=== PATIENT | female | born 1940 | race Caucasian/White ===

== ENCOUNTER 2017-09-12 22:12 | Inpatient (IN) | payer MEDICARE, MEDICAID ==
[~2017-09-12] VITALS: Ht 165.1 cm; Wt 99.5 kg
[2017-09-12 22:51] LABS: BASOPHILS # (AUTO) 0.1 X10'3 (0-0.2); BASOPHILS % (AUTO) 0.5 % (0-1); EOSINOPHILS # (AUTO) 0.5 X10'3 (0-0.9); EOSINOPHILS % (AUTO) 4.6 % (0-6); HEMATOCRIT 37.3 % (35.0-45.0); HEMOGLOBIN 12.7 g/dl (12.0-16.0); LYMPHOCYTES % (AUTO) 17.4 % (21-51); MEAN CORPUSCULAR HGB CONC 34.1 % (33.0-36.5); MEAN CORPUSCULAR VOLUME 93.8 FL (78-98); MEAN PLATELET VOLUME 7.9 FL (7.4-10.4); MONOCYTES # (AUTO) 0.8 X10'3 (0-0.9); MONOCYTES % (AUTO) 7.1 % (2-12); NEUTROPHILS # (AUTO) 8.1 X10'3 (1.8-7.7); NEUTROPHILS % (AUTO) 70.4 % (42-75); PLATELET COUNT 278 X10'3 (140-440); RED BLOOD COUNT 3.97 X10'6 (4.20-5.60); RED CELL DISTRIBUTION WIDTH 14.4 % (11.5-14.5); WHITE BLOOD COUNT 11.6 X10'3 (4.5-11.0)
[2017-09-12 23:04] LABS: PARTIAL THROMBOPLASTIN TIME 27 SECONDS (22-32); PROTHROMBIN TIME 10.4 SECONDS (9.0-12.0)
[2017-09-12 23:07] LABS: ALANINE AMINOTRANSFERASE 27 U/L (12-78); ALBUMIN 3.3 G/DL (3.4-5.0); ALBUMIN/GLOBULIN RATIO 0.8 (1.1-1.5); ALKALINE PHOSPHATASE 84 IU/L (46-116); ANION GAP 7 (8-16); ASPARTATE AMINO TRANSFERASE 23 U/L (10-37); BILIRUBIN,TOTAL 0.3 MG/DL (0.1-1.0); BLOOD UREA NITROGEN 16 MG/DL (7-18); CALCIUM 8.7 MG/DL (8.5-10.1); CHLORIDE 107 MMOL/L (99-107); GLUCOSE 107 MG/DL (70-104); SODIUM 143 MMOL/L (135-145); TOTAL CARBON DIOXIDE 29.5 MMOL/L (24-32); TOTAL PROTEIN 7.2 G/DL (6.4-8.2); eGFR 69 ML/MIN
[2017-09-13] MEDS ORDERED: HYDROcodone/acetaminophen 10/325mg tab PO PRN (00:30)
[2017-09-13] MEDS ORDERED: HYDROcodone/acetaminophen 5mg/325mg tablet PO PRN (00:30)
[2017-09-13] MEDS ORDERED: acetaminophen 325mg tablet PO PRN (00:30)
[2017-09-13] MEDS ORDERED: ondansetron/PF 4mg/2ml inj IV PRN (00:30)
[2017-09-13] MEDS ORDERED: magnesium hydroxide 30ml (MOM) UD suspension PO PRN (00:30)
[2017-09-13] MEDS ORDERED: HYDROmorphone 1 mg/ml syringe IV PRN ×2 (00:30)
[2017-09-13] MEDS ORDERED: acetaminophen 650mg rectal suppository RC PRN (00:30)
[2017-09-13] MEDS ORDERED: morphine 2 MG/ML inj. syringe IV PRN ×2 (00:30)
[2017-09-13] MEDS ORDERED: metoclopramide 5 mg/ml inj IV PRN (00:30)
[2017-09-13] MEDS ORDERED: mag hydrox/Alum hydrox/simeth 30ml oral suspension PO PRN (00:30)
[2017-09-13] MEDS ORDERED: bisacodyl 10mg suppository rectal RC PRN (00:30)
[2017-09-13] MEDS ORDERED: diphenhydrAMINE 25mg capsule PO PRN (00:30)
[2017-09-13] MEDS ORDERED: diphenhydrAMINE 50 mg/ml inj IV PRN (00:30)
[2017-09-13] MEDS: normal saline 1000ml 1,000 ML IV SCH (01:03)
[2017-09-13] MEDS: metoprolol tartrate 1mg/ml inj IV PRN ×4 (01:09→03:35)
[2017-09-13 01:20] LABS: HEMOGLOBIN A1C 5.6 % (4.5-6.2)
[2017-09-13 01:32] LABS: CREATINE KINASE 80 U/L (26-192); LIPASE 218 U/L (73-393); TROPONIN I < 0.04 NG/ML (0.0-0.05)
[2017-09-13] MEDS: acetaminophen 325mg tablet PO PRN ×3 (03:22→23:24)
[2017-09-13] MEDS: docusate sod 100mg capsule PO SCH ×2 (07:20→21:27)
[2017-09-13 08:50] VITALS: BP 156/76
[2017-09-13] MEDS: pantoprazole 40 MG vial IV SCH ×2 (09:05→21:26)
[2017-09-13] MEDS ORDERED: NO HOME MEDS (10:56)
[2017-09-13 12:53] VITALS: BP 157/67
[2017-09-13 16:21] LABS: HEMATOCRIT 34.1 % (35.0-45.0); HEMOGLOBIN 11.6 g/dl (12.0-16.0); MEAN CORPUSCULAR HGB CONC 34.1 % (33.0-36.5); MEAN CORPUSCULAR VOLUME 93.6 FL (78-98); MEAN PLATELET VOLUME 7.9 FL (7.4-10.4); PLATELET COUNT 246 X10'3 (140-440); RED BLOOD COUNT 3.64 X10'6 (4.20-5.60); RED CELL DISTRIBUTION WIDTH 14.5 % (11.5-14.5); WHITE BLOOD COUNT 7.7 X10'3 (4.5-11.0)
[2017-09-13 20:00] VITALS: BP 165/68
[2017-09-13] MEDS ORDERED: temazepam 15mg capsule PO PRN (21:00)
[2017-09-14] VITALS: BP 149/63
[2017-09-14 05:18] LABS: BASOPHILS # (AUTO) 0.1 X10'3 (0-0.2); EOSINOPHILS # (AUTO) 0.5 X10'3 (0-0.9); HEMATOCRIT 31.6 % (35.0-45.0); HEMOGLOBIN 10.8 g/dl (12.0-16.0); LYMPHOCYTES # (AUTO) 1.4 X10'3 (1.1-4.8); LYMPHOCYTES % (AUTO) 21.6 % (21-51); MEAN CORPUSCULAR HEMOGLOBIN 31.9 PG (27.0-31.0); MEAN CORPUSCULAR HGB CONC 34.1 % (33.0-36.5); MEAN CORPUSCULAR VOLUME 93.7 FL (78-98); MEAN PLATELET VOLUME 8.1 FL (7.4-10.4); MONOCYTES # (AUTO) 0.6 X10'3 (0-0.9); MONOCYTES % (AUTO) 9.3 % (2-12); NEUTROPHILS # (AUTO) 4.1 X10'3 (1.8-7.7); NEUTROPHILS % (AUTO) 61.1 % (42-75); PLATELET COUNT 205 X10'3 (140-440); RED BLOOD COUNT 3.38 X10'6 (4.20-5.60); RED CELL DISTRIBUTION WIDTH 14.4 % (11.5-14.5); WHITE BLOOD COUNT 6.6 X10'3 (4.5-11.0)
[2017-09-14 05:25] LABS: ALANINE AMINOTRANSFERASE 23 U/L (12-78); ALBUMIN 2.8 G/DL (3.4-5.0); ALBUMIN/GLOBULIN RATIO 0.8 (1.1-1.5); ALKALINE PHOSPHATASE 66 IU/L (46-116); ANION GAP 8 (8-16); ASPARTATE AMINO TRANSFERASE 21 U/L (10-37); BILIRUBIN,TOTAL 0.4 MG/DL (0.1-1.0); BLOOD UREA NITROGEN 12 MG/DL (7-18); CALCIUM 8.7 MG/DL (8.5-10.1); CHLORIDE 108 MMOL/L (99-107); CHOL/HDL RATIO 2.9 (0.00-4.99); CHOLESTEROL 124 MG/DL (0-200); GLUCOSE 107 MG/DL (70-104); HDL CHOLESTEROL 43 MG/DL (35-60); LDL CHOLESTEROL 70 MG/DL (50-100); POTASSIUM 3.8 MMOL/L (3.5-5.1); SODIUM 144 MMOL/L (135-145); TOTAL PROTEIN 6.2 G/DL (6.4-8.2); TRIGLYCERIDES 97 MG/DL (20-135); eGFR 69 ML/MIN
[2017-09-14] MEDS: docusate sod 100mg capsule PO SCH ×2 (06:29→20:00)
[2017-09-14] MEDS: acetaminophen 325mg tablet PO PRN ×3 (06:47→20:54)
[2017-09-14] MEDS: pantoprazole 40 MG vial IV SCH ×2 (06:47→20:53)
[2017-09-14 07:26] VITALS: BP 142/54
[2017-09-14] MEDS ORDERED: heparin sodium, porcine/PF 100unit/ml 5ML syringe ONE (07:58)
[2017-09-14 12:00] VITALS: BP 164/71
[2017-09-14] MEDS ORDERED: PEG 3350/Na sulf,bicarb,Cl/KCl oral sol 4 liter bottle PO ONE (14:15)
[2017-09-14 20:00] VITALS: BP 158/65
[2017-09-15] VITALS (10 sets, daily range): BP systolic 134–161; BP diastolic 54–79
[2017-09-15] MEDS: normal saline 1000ml 1,000 ML IV SCH (01:12)
[2017-09-15] MEDS: acetaminophen 325mg tablet PO PRN ×3 (02:28→20:11)
[2017-09-15 06:06] LABS: BASOPHILS % (AUTO) 0.2 % (0-1); EOSINOPHILS # (AUTO) 0.5 X10'3 (0-0.9); EOSINOPHILS % (AUTO) 6.2 % (0-6); HEMATOCRIT 30.1 % (35.0-45.0); HEMOGLOBIN 10.2 g/dl (12.0-16.0); LYMPHOCYTES # (AUTO) 1.4 X10'3 (1.1-4.8); LYMPHOCYTES % (AUTO) 19.5 % (21-51); MEAN CORPUSCULAR HEMOGLOBIN 31.7 PG (27.0-31.0); MEAN CORPUSCULAR VOLUME 93.3 FL (78-98); MONOCYTES # (AUTO) 0.6 X10'3 (0-0.9); MONOCYTES % (AUTO) 8.5 % (2-12); NEUTROPHILS # (AUTO) 4.7 X10'3 (1.8-7.7); NEUTROPHILS % (AUTO) 65.6 % (42-75); PLATELET COUNT 213 X10'3 (140-440); RED BLOOD COUNT 3.22 X10'6 (4.20-5.60); RED CELL DISTRIBUTION WIDTH 13.9 % (11.5-14.5); WHITE BLOOD COUNT 7.2 X10'3 (4.5-11.0)
[2017-09-15] MEDS: docusate sod 100mg capsule PO SCH ×2 (06:21→20:00)
[2017-09-15 06:33] LABS: ALANINE AMINOTRANSFERASE 23 U/L (12-78); ALBUMIN 2.8 G/DL (3.4-5.0); ALBUMIN/GLOBULIN RATIO 0.8 (1.1-1.5); ALKALINE PHOSPHATASE 65 IU/L (46-116); ANION GAP 8 (8-16); ASPARTATE AMINO TRANSFERASE 25 U/L (10-37); BILIRUBIN,TOTAL 0.3 MG/DL (0.1-1.0); BLOOD UREA NITROGEN 9 MG/DL (7-18); BUN/CREATININE RATIO 12.9 (6.6-38.0); CALCIUM 8.5 MG/DL (8.5-10.1); CHLORIDE 110 MMOL/L (99-107); GLUCOSE 100 MG/DL (70-104); POTASSIUM 3.9 MMOL/L (3.5-5.1); SODIUM 147 MMOL/L (135-145); TOTAL CARBON DIOXIDE 28.6 MMOL/L (24-32); TOTAL PROTEIN 6.1 G/DL (6.4-8.2); eGFR 81 ML/MIN
[2017-09-15] MEDS ORDERED: MIDAZolam 1mg/ml 10ml vial ONE (06:51)
[2017-09-15] MEDS ORDERED: LIDOcaine Viscous 15ml cup ONE (06:51)
[2017-09-15] MEDS ORDERED: fentaNYL/PF 50MCG/1 ML 2ML syringe ONE ×2 (06:51→09:02)
[2017-09-15] MEDS: pantoprazole 40 MG vial IV SCH (07:33)
[2017-09-15] MEDS ORDERED: amLODIPine 5mg tablet PO SCH (08:00)
[2017-09-15] MEDS ORDERED: normal saline 1000ml 1,000 ML IV SCH (08:14)
[2017-09-15] MEDS ORDERED: MIDAZolam 5mg/5ml vial IV PRN (08:15)
[2017-09-15] MEDS ORDERED: simethicone 40mg/0.6ml oral drops 30ml MC ONE (08:15)
[2017-09-15] MEDS ORDERED: LIDOcaine Viscous 15ml cup PO ONE (08:15)
[2017-09-15] MEDS ORDERED: fentaNYL/PF 50MCG/1 ML 2ML syringe IV PRN (08:15)
[2017-09-15] MEDS: metroNIDAZOLE-Flagyl 500mg/NS 100 ML IV SCH ×2 (15:41→15:54)
[2017-09-15] MEDS: levoFLOXACIN 500mg tablet PO SCH (15:41)
[2017-09-15] MEDS: pantoprazole 40mg Tablet.DR PO SCH (20:08)
[2017-09-16] VITALS: BP 150/63
[2017-09-16] MEDS: metroNIDAZOLE 500mg tablet PO SCH ×3 (04:12→16:58)
[2017-09-16] MEDS: acetaminophen 325mg tablet PO PRN ×2 (04:16→13:36)
[2017-09-16 06:24] LABS: BASOPHILS # (AUTO) 0.1 X10'3 (0-0.2); BASOPHILS % (AUTO) 0.6 % (0-1); EOSINOPHILS # (AUTO) 0.3 X10'3 (0-0.9); EOSINOPHILS % (AUTO) 3.4 % (0-6); HEMATOCRIT 30.5 % (35.0-45.0); HEMOGLOBIN 10.6 g/dl (12.0-16.0); LYMPHOCYTES # (AUTO) 1.3 X10'3 (1.1-4.8); LYMPHOCYTES % (AUTO) 13.7 % (21-51); MEAN CORPUSCULAR HEMOGLOBIN 32.1 PG (27.0-31.0); MEAN CORPUSCULAR HGB CONC 34.7 % (33.0-36.5); MEAN CORPUSCULAR VOLUME 92.5 FL (78-98); MONOCYTES # (AUTO) 0.7 X10'3 (0-0.9); MONOCYTES % (AUTO) 7.4 % (2-12); NEUTROPHILS # (AUTO) 7.4 X10'3 (1.8-7.7); NEUTROPHILS % (AUTO) 74.9 % (42-75); PLATELET COUNT 233 X10'3 (140-440); RED BLOOD COUNT 3.29 X10'6 (4.20-5.60); RED CELL DISTRIBUTION WIDTH 14.1 % (11.5-14.5); WHITE BLOOD COUNT 9.8 X10'3 (4.5-11.0)
[2017-09-16 06:39] LABS: ALANINE AMINOTRANSFERASE 26 U/L (12-78); ALBUMIN 3.1 G/DL (3.4-5.0); ALBUMIN/GLOBULIN RATIO 0.9 (1.1-1.5); ALKALINE PHOSPHATASE 71 IU/L (46-116); ANION GAP 7 (8-16); ASPARTATE AMINO TRANSFERASE 27 U/L (10-37); BILIRUBIN,TOTAL 0.5 MG/DL (0.1-1.0); BLOOD UREA NITROGEN 8 MG/DL (7-18); BUN/CREATININE RATIO 8.9 (6.6-38.0); CHLORIDE 107 MMOL/L (99-107); GLUCOSE 108 MG/DL (70-104); SODIUM 144 MMOL/L (135-145); TOTAL CARBON DIOXIDE 29.9 MMOL/L (24-32); TOTAL PROTEIN 6.7 G/DL (6.4-8.2); eGFR 60 ML/MIN
[2017-09-16 07:30] VITALS: BP 154/59
[2017-09-16] MEDS ORDERED: amLODIPine 5mg tablet PO SCH (08:00)
[2017-09-16] MEDS: docusate sod 100mg capsule PO SCH (08:00)
[2017-09-16] MEDS: pantoprazole 40mg Tablet.DR PO SCH (10:19)
[2017-09-16] MEDS: levoFLOXACIN 500mg tablet PO SCH (10:19)
[2017-09-16 10:38] LABS: OCCULT BLOOD STOOL POSITIVE (Neg)
[2017-09-16 11:00] VITALS: BP 133/63
[2017-09-16] MEDS ORDERED: AMLO5TAB16 PO (13:01)
[2017-09-16] MEDS ORDERED: LEVO500T89 PO (13:01)
[2017-09-16] MEDS ORDERED: METR500T4 PO (13:01)
[2017-09-16] MEDS ORDERED: PANT40TA4 PO (13:01)
[2017-09-16] MEDS ORDERED: lactobacillus rhamnosus 10,000 MMU CELLS/CAPSULE PO SCH (17:30)
== END 2017-09-16 18:30 | disposition home health service (06) | DRG 378 ==
LOC: ER 22:13 → ED HOLD 09-13 00:28 → MED 3N 09-13 08:45
PROVIDERS: ADMIT Family Medicine; ATTEND Internal Medicine
PROC: 0DJ08ZZ Inspection of Upper Intestinal Tract, Via Natural or Artificial Opening Endoscopic (ICD-10-PCS; principal; 2017-09-15)
PROC: 0DBM8ZZ Excision of Descending Colon, Via Natural or Artificial Opening Endoscopic (ICD-10-PCS; 2017-09-15)
PROC: 0DBL8ZZ Excision of Transverse Colon, Via Natural or Artificial Opening Endoscopic (ICD-10-PCS; 2017-09-15)
PROC: 0DBP8ZZ Excision of Rectum, Via Natural or Artificial Opening Endoscopic (ICD-10-PCS; 2017-09-15)
DX: K62.5 Hemorrhage of anus and rectum (principal); I16.1 Hypertensive emergency; E11.9 Type 2 diabetes mellitus without complications; D64.9 Anemia, unspecified; E66.01 Morbid (severe) obesity due to excess calories; F41.9 Anxiety disorder, unspecified; I10 Essential (primary) hypertension; K31.819 Angiodysplasia of stomach and duodenum without bleeding; K57.30 Diverticulosis of large intestine without perforation or abscess without bleeding; K62.1 Rectal polyp; K63.5 Polyp of colon; J44.9 Chronic obstructive pulmonary disease, unspecified; Z90.710 Acquired absence of both cervix and uterus; Z99.3 Dependence on wheelchair; Z90.49 Acquired absence of other specified parts of digestive tract; Z87.891 Personal history of nicotine dependence; Z68.36 Body mass index [BMI] 36.0-36.9, adult
CPT/HCPCS: 36415; 45385; 78278; 80053; 80061; 82272; 82550; 83036; 83690; 83735; 83880; 84100; 84443; 84484; 85025; 85027; 85610; 85730; 86885; 86900; 86901; 87070; 96374; 99285; A4620; A9560; C9113; G0500; J1200; J1642; J2250; J3010; J3490; J7030; J7060

== ENCOUNTER 2020-09-12 04:23 | Emergency (ER) | payer MEDICARE, MEDICAID ==
[~2020-09-12] VITALS: Ht 165.1 cm; Wt 95.0 kg
[~2020-09-12 04:23] MED LIST: AMLO5TAB16 PO; LEVO500T89 PO; METR-159 PO; NO HOME MEDS; PANT40TA54 PO
[2020-09-12 04:26] VITALS: BP 166/64
[2020-09-12] MEDS ORDERED: HYDROcodone/acetaminophen 5mg/325mg tablet PO ONE (04:50)
[2020-09-12] MEDS ORDERED: HYDR-3965 PO (05:13)
== END 2020-09-12 05:24 | disposition home or self-care (01) ==
LOC: ER 04:24
DX: S00.81XA Abrasion of other part of head, initial encounter (principal); M79.602 Pain in left arm; M25.512 Pain in left shoulder; I10 Essential (primary) hypertension; J44.9 Chronic obstructive pulmonary disease, unspecified; E11.9 Type 2 diabetes mellitus without complications; Z90.49 Acquired absence of other specified parts of digestive tract; Z90.710 Acquired absence of both cervix and uterus; Z90.89 Acquired absence of other organs; Z72.89 Other problems related to lifestyle; Z79.2 Long term (current) use of antibiotics; Z79.899 Other long term (current) drug therapy; W19.XXXA Unspecified fall, initial encounter; Y93.89 Activity, other specified; Y92.89 Other specified places as the place of occurrence of the external cause; Y99.8 Other external cause status
CPT/HCPCS: 99283

== ENCOUNTER 2021-10-23 18:00 | Inpatient (IN) | payer BC, MEDICAID ==
[~2021-10-23] VITALS: Ht 165.1 cm; Wt 83.7 kg
[~2021-10-23 18:00] MED LIST changes: -LEVO500T89 PO; +LEVO500T90 PO
[2021-10-23] MEDS ORDERED: HYDR-3972 PO (18:25)
[2021-10-23] MEDS ORDERED: POTA8CAP20 PO (18:25)
[2021-10-23] MEDS ORDERED: FURO40TA4 PO (18:25)
[2021-10-23] MEDS ORDERED: furosemide 40mg/4ml inj IV ONE (18:50)
[2021-10-23 19:25] LABS: ALANINE AMINOTRANSFERASE 15 U/L (12-78); ALBUMIN 2.1 G/DL (3.4-5.0); ALBUMIN/GLOBULIN RATIO 0.5 (1.1-1.5); ALKALINE PHOSPHATASE 171 IU/L (46-116); ANION GAP 9 (8-16); ASPARTATE AMINO TRANSFERASE 19 U/L (10-37); BILIRUBIN,TOTAL 0.7 MG/DL (0.1-1.0); BLOOD UREA NITROGEN 29 MG/DL (7-18); BUN/CREATININE RATIO 29.6 (6.6-38.0); CALCIUM 9.4 MG/DL (8.5-10.1); CHLORIDE 86 MMOL/L (99-107); CREATININE 0.98 MG/DL (0.40-0.90); GLUCOSE 89 MG/DL (70-104); POTASSIUM 4.8 MMOL/L (3.5-5.1); SODIUM 121 MMOL/L (135-145); TOTAL CARBON DIOXIDE 26.3 MMOL/L (24-32); TOTAL PROTEIN 6.5 G/DL (6.4-8.2); eGFR 54 ML/MIN
[2021-10-23 19:31] LABS: BASOPHILS # (AUTO) 0.1 X10'3 (0-0.2); BASOPHILS % (AUTO) 0.2 % (0-1); EOSINOPHILS # (AUTO) 1.6 X10'3 (0-0.9); EOSINOPHILS % (AUTO) 6.2 % (0-6); HEMATOCRIT 29.9 % (35.0-45.0); HEMOGLOBIN 9.5 g/dl (12.0-16.0); LYMPHOCYTES # (AUTO) 1.5 X10'3 (1.1-4.8); LYMPHOCYTES % (AUTO) 5.9 % (21-51); MEAN CORPUSCULAR HEMOGLOBIN 27.4 PG (27.0-31.0); MEAN CORPUSCULAR HGB CONC 31.7 g/dL (33.0-36.5); MEAN CORPUSCULAR VOLUME 86.3 FL (78-98); MEAN PLATELET VOLUME 7.4 FL (7.4-10.4); MONOCYTES # (AUTO) 3.2 X10'3 (0-0.9); MONOCYTES % (AUTO) 12.2 % (2-12); NEUTROPHILS # (AUTO) 19.9 X10'3 (1.8-7.7); NEUTROPHILS % (AUTO) 75.5 % (42-75); PLATELET COUNT 386 X10'3 (140-440); RED BLOOD COUNT 3.47 X10'6 (4.20-5.60); RED CELL DISTRIBUTION WIDTH 18.3 % (11.5-14.5)
[2021-10-23 19:36] LABS: WHITE BLOOD COUNT 26.4 X10'3 (4.5-11.0)
[2021-10-23] MEDS ORDERED: CefTRIAXone 2gm/D5W 50ml BAG 50 ML IV ONE (19:40)
[2021-10-23] MEDS ORDERED: ondansetron/PF 4mg/2ml inj IV PRN (20:00)
[2021-10-23] MEDS: K and/or MAG REPLACEMENT MC SCH (20:00)
[2021-10-23] MEDS ORDERED: magnesium hydroxide 30ml (MOM) UD suspension PO PRN (20:00)
[2021-10-23] MEDS ORDERED: magnesium 2GM in 50ml NS 50 ML IV PRN (20:00)
[2021-10-23] MEDS ORDERED: apixaban 5mg tablet PO SCH (20:00)
[2021-10-23] MEDS ORDERED: acetaminophen 325mg tablet PO PRN (20:00)
[2021-10-23] MEDS ORDERED: potassium Cl 20 mEq SR tablet PO PRN ×2 (20:00)
[2021-10-23] MEDS ORDERED: morphine 2 MG/ML inj. syringe IV PRN (20:00)
[2021-10-23] MEDS ORDERED: potassium CL 10mEq/100ml bag 100 ML IV PRN (20:00)
[2021-10-23] MEDS ORDERED: mag hydrox/Alum hydrox/simeth 30ml oral suspension PO PRN (20:00)
[2021-10-23] MEDS ORDERED: magnesium 4gm in 100ml NS 100 ML IV PRN (20:00)
[2021-10-23] MEDS ORDERED: magnesium Cl slow-release 64mg tablet PO PRN (20:00)
[2021-10-23] MEDS ORDERED: apixaban 5mg tablet PO STA (20:10)
[2021-10-23] MEDS ORDERED: metoprolol tartrate 1mg/ml inj IV ONE (20:10)
[2021-10-23] MEDS: metoprolol tartrate 50mg tablet PO SCH (20:10)
[2021-10-23 20:27] LABS: MAGNESIUM 2.3 MG/DL (1.5-2.4)
[2021-10-23] MEDS: HYDROcodone/acetaminophen 10/325mg tab PO PRN (20:31)
[2021-10-23] MEDS: docusate sod 100mg capsule PO SCH (20:31)
[2021-10-23 20:38] LABS: HEMOGLOBIN A1C 5.6 % (4.5-6.2)
[2021-10-23 21:02] LABS: PLATELET ESTIMATE NORMAL; TOTAL CELLS COUNTED 100; TOXIC GRANULATION 3+
[2021-10-23 21:03] LABS: ANISOCYTOSIS 2+; TOXIC VACUOLATION FEW
[2021-10-23 21:04] LABS: ELLIPTOCYTES FEW; LARGE PLATELETS FEW
[2021-10-23 21:05] LABS: POLYCHROMASIA FEW
[2021-10-23 22:15] LABS: CLARITY,URINE CLOUDY (Clear); COLOR,URINE YELLOW (Yellow); GLUCOSE, URINE NEGATIVE (Neg); KETONES,URINE NEGATIVE (Neg); LEUKOCYTE ESTERASE ,URINE LARGE (Neg); NITRITES, URINE NEGATIVE (Neg); OCCULT BLOOD,URINE SMALL (Neg); PH,URINE 6.5 (4.8-8.0); PROTEIN,URINE NEGATIVE (Neg); UROBILINOGEN,URINE 0.2 E.U/dL (0.2-1.0)
[2021-10-23 22:19] LABS: UA COLLECTION TYPE STRAIGHT CATH
[2021-10-23 22:22] LABS: BACTERIA,URINE 1+ /HPF (Neg); MUCUS STRANDS FEW /LPF (Neg); SQUAMOUS EPITHELIAL CELL,UR FEW /LPF (FEW); TRANSITIONAL EPI CELLS,URINE FEW /HPF; WBC,URINE TNTC /HPF (0-4)
[2021-10-23 22:23] LABS: WBC CLUMPS,URINE MODERATE /HPF (NEGATIVE)
--- NOTE | 2021-10-23 22:32 | NUR ---
SPOKE WITH HOSPITALIST REGARDING PATIENTS DESIRE TO RECIEVE A ROY, HOSPITALIST GAVE VERBAL ORDER.
[2021-10-23 23:55] VITALS: BP 136/101
[2021-10-24] MEDS: morphine 2 MG/ML inj. syringe IV PRN ×2 (01:00→05:17)
[2021-10-24 06:00] VITALS: BP 141/103
[2021-10-24 06:46] LABS: BASOPHILS % (AUTO) 0.2 % (0-1); EOSINOPHILS # (AUTO) 0.1 X10'3 (0-0.9); EOSINOPHILS % (AUTO) 0.6 % (0-6); HEMATOCRIT 26.4 % (35.0-45.0); HEMOGLOBIN 8.5 g/dl (12.0-16.0); LYMPHOCYTES # (AUTO) 0.8 X10'3 (1.1-4.8); LYMPHOCYTES % (AUTO) 3.9 % (21-51); MEAN CORPUSCULAR HEMOGLOBIN 27.4 PG (27.0-31.0); MEAN CORPUSCULAR HGB CONC 32.2 g/dL (33.0-36.5); MEAN PLATELET VOLUME 7.3 FL (7.4-10.4); MONOCYTES # (AUTO) 1.8 X10'3 (0-0.9); MONOCYTES % (AUTO) 9.1 % (2-12); NEUTROPHILS # (AUTO) 17.4 X10'3 (1.8-7.7); NEUTROPHILS % (AUTO) 86.2 % (42-75); PLATELET COUNT 383 X10'3 (140-440); RED BLOOD COUNT 3.11 X10'6 (4.20-5.60); RED CELL DISTRIBUTION WIDTH 17.9 % (11.5-14.5); WHITE BLOOD COUNT 20.2 X10'3 (4.5-11.0)
[2021-10-24 07:05] LABS: % IRON SATURATION 13 % (11-46); IRON 16 UG/DL (49-151); TOTAL IRON BINDING CAPACITY 120 UG/DL (259-388)
[2021-10-24 07:21] LABS: ALANINE AMINOTRANSFERASE 11 U/L (12-78); ALBUMIN 1.9 G/DL (3.4-5.0); ALBUMIN/GLOBULIN RATIO 0.5 (1.1-1.5); ALKALINE PHOSPHATASE 139 IU/L (46-116); ANION GAP 10 (8-16); ASPARTATE AMINO TRANSFERASE 18 U/L (10-37); BILIRUBIN,TOTAL 0.7 MG/DL (0.1-1.0); BLOOD UREA NITROGEN 28 MG/DL (7-18); BUN/CREATININE RATIO 30.1 (6.6-38.0); CALCIUM 9.2 MG/DL (8.5-10.1); CHLORIDE 89 MMOL/L (99-107); CHOL/HDL RATIO 2.4 (0.00-4.99); CHOLESTEROL 110 MG/DL (0-200); CREATININE 0.93 MG/DL (0.40-0.90); FERRITIN 322 NG/ML (8-252); GLUCOSE 70 MG/DL (70-104); HDL CHOLESTEROL 46 MG/DL (35-60); LDL CHOLESTEROL 44 MG/DL (50-100); MAGNESIUM 2.1 MG/DL (1.5-2.4); POTASSIUM 4.3 MMOL/L (3.5-5.1); SODIUM 126 MMOL/L (135-145); TOTAL CARBON DIOXIDE 27.1 MMOL/L (24-32); TOTAL PROTEIN 5.9 G/DL (6.4-8.2); TRIGLYCERIDES 57 MG/DL (20-135); eGFR 58 ML/MIN
[2021-10-24] MEDS ORDERED: furosemide 10 MG/1 ML 10ml inj IV SCH (08:00)
[2021-10-24] MEDS: K and/or MAG REPLACEMENT MC SCH ×2 (08:00→20:00)
[2021-10-24] MEDS: docusate sod 100mg capsule PO SCH ×2 (08:16→20:22)
[2021-10-24] MEDS: apixaban 5mg tablet PO SCH ×2 (08:16→20:22)
[2021-10-24] MEDS: metoprolol tartrate 50mg tablet PO SCH ×2 (08:16→20:23)
[2021-10-24] MEDS: CefTRIAXone/D5W-Rocephin 1gm 50 ML IV SCH (08:17)
[2021-10-24] MEDS: HYDROcodone/acetaminophen 10/325mg tab PO PRN (09:00)
[2021-10-24 09:52] LABS: APTT 43 SECONDS (22-32)
[2021-10-24] MEDS ORDERED: salt irrigation nasal spray 45 ML SPRAY NS PRN (10:45)
[2021-10-24 11:00] VITALS: BP 141/103
--- NOTE | 2021-10-24 11:38 | NUR ---
Malnutrition Consult: Noted pt stated wt loss of 34 lbs or more per RN malnutrition screen. Pt current wt of 78.18 kg not scaled and is 16.82 kg less than previous scaled wt of 95 kg, taken 08/2020, constituting a non-significant wt difference of ~18% x 1 year. No visible muscle or fat wasting observed at bedside. Noted w/ mild weakness, and BLE +2 edema, likely related to CHF; Pending PO trends. Pt w/ PI to coccyx and noted wounds to LE, pending WOC assessment. Pt does not meet minimum criteria for malnutrition at this time. Will continue to monitor. Addendum: 10/24/21 at [address] Amended: Links added. Addendum: 10/24/21 at [address] I have reviewed assessment by biology internship
[2021-10-24] MEDS ORDERED: nystatin 15 GM powder TP SCH (13:00)
--- NOTE | 2021-10-24 13:09 | NUR ---
PRESSURE ULCER EDUCATION: DEFINITION: A pressure ulcer is an area of skin that breaks down when you stay in one position too long. The constant pressure against the skin reduces the blood flow to that area and the affected tissue dies. CAUSES: "Being bedridden or in a wheelchair "Fragile skin "Having a chronic condition, such as diabetes or vascular disease "Inability to move certain parts of your body without assistance "Older age "Incontinence of urine or stool SYMPTOMS: "A reddened area that DOES NOT turn white when pressed on - this can be the beginning of a pressure ulcer "A blister, deep sore or a crater - these can be advanced pressure ulcers FIRST AID: "Relieve the pressure on this area "Keep the area clean and dry "Call your primary doctor if you see any of the above symptoms "DO NOT massage the area "DO NOT use a donut shaped or ring shaped pillow- these actually interfere with the blood flow and cause complications PREVENTION: "Check for pressure ulcers everyday "Change position at least every two hours to relieve pressure "Use items that help relieve pressure- pillows, sheepskin, foam padding, and powders. "Keep skin clean and dry "Eat healthy well balanced meals "Exercise daily IF YOU SEE ANY OF THESE SYMPTOMS WHILE IN THE HOSPITAL - TELL YOUR NURSE IMMEDIATELY. IF YOU SEE ANY OF THESE SYMPTOMS WHILE AT HOME OR HAVE ANY QUESTIONS OR CONCERNS ABOUT PRESSURE ULCERS - CALL YOUR PRIMARY DOCTOR IMMEDIATELY. Addendum: 10/24/21 at 1309 by Lakesha Fontenot RN Amended: Links added.
[2021-10-24] MEDS: LIDOcaine 5% patch TP SCH (14:53)
[2021-10-24 15:54] VITALS: BP 127/60
[2021-10-24 18:00] VITALS: BP 119/53
--- NOTE | 2021-10-24 18:20 | NUR ---
Problems reprioritized. Patient report given, questions answered & plan of care reviewed with Jenn Patricia. Addendum: 10/25/21 at 0609 by Jenn Christie RN Problems reprioritized. Patient report given, questions answered & plan of care reviewed with Kika PATRICIA.
[2021-10-24] MEDS: furosemide 10 MG/1 ML 10ml inj IV SCH (20:22)
[2021-10-24] MEDS: HYDROcodone/acetaminophen 5mg/325mg tablet PO PRN (20:23)
[2021-10-24 22:00] VITALS: BP 141/100
[2021-10-25 02:00] VITALS: BP 105/36
[2021-10-25] MEDS: HYDROcodone/acetaminophen 5mg/325mg tablet PO PRN ×4 (05:05→22:01)
[2021-10-25 06:00] VITALS: BP 115/41
[2021-10-25 06:19] LABS: BASOPHILS % (AUTO) 0.3 % (0-1); EOSINOPHILS # (AUTO) 0.1 X10'3 (0-0.9); EOSINOPHILS % (AUTO) 0.8 % (0-6); HEMATOCRIT 26.1 % (35.0-45.0); HEMOGLOBIN 8.4 g/dl (12.0-16.0); LYMPHOCYTES # (AUTO) 0.6 X10'3 (1.1-4.8); LYMPHOCYTES % (AUTO) 4.1 % (21-51); MEAN CORPUSCULAR HEMOGLOBIN 27.5 PG (27.0-31.0); MEAN CORPUSCULAR HGB CONC 32.1 g/dL (33.0-36.5); MEAN CORPUSCULAR VOLUME 85.5 FL (78-98); MEAN PLATELET VOLUME 6.8 FL (7.4-10.4); MONOCYTES # (AUTO) 1.7 X10'3 (0-0.9); NEUTROPHILS # (AUTO) 12.8 X10'3 (1.8-7.7); NEUTROPHILS % (AUTO) 83.8 % (42-75); PLATELET COUNT 338 X10'3 (140-440); RED BLOOD COUNT 3.05 X10'6 (4.20-5.60); RED CELL DISTRIBUTION WIDTH 18.4 % (11.5-14.5); WHITE BLOOD COUNT 15.2 X10'3 (4.5-11.0)
[2021-10-25 06:52] LABS: ALANINE AMINOTRANSFERASE 9 U/L (12-78); ALBUMIN 1.6 G/DL (3.4-5.0); ALBUMIN/GLOBULIN RATIO 0.4 (1.1-1.5); ALKALINE PHOSPHATASE 122 IU/L (46-116); ANION GAP 7 (8-16); ASPARTATE AMINO TRANSFERASE 15 U/L (10-37); BILIRUBIN,TOTAL 0.4 MG/DL (0.1-1.0); BLOOD UREA NITROGEN 31 MG/DL (7-18); CALCIUM 8.6 MG/DL (8.5-10.1); CHLORIDE 93 MMOL/L (99-107); CREATININE 0.97 MG/DL (0.40-0.90); GLUCOSE 97 MG/DL (70-104); SODIUM 129 MMOL/L (135-145); TOTAL CARBON DIOXIDE 29.5 MMOL/L (24-32); TOTAL PROTEIN 5.4 G/DL (6.4-8.2); eGFR 55 ML/MIN
[2021-10-25 07:05] LABS: MAGNESIUM 1.7 MG/DL (1.5-2.4)
[2021-10-25] MEDS: K and/or MAG REPLACEMENT MC SCH ×2 (08:00→20:00)
[2021-10-25] MEDS: LIDOcaine 5% patch TP SCH (09:02)
[2021-10-25] MEDS: CefTRIAXone/D5W-Rocephin 1gm 50 ML IV SCH (09:02)
[2021-10-25] MEDS: furosemide 10 MG/1 ML 10ml inj IV SCH ×2 (09:03→20:29)
[2021-10-25] MEDS: apixaban 5mg tablet PO SCH ×2 (09:04→20:19)
[2021-10-25] MEDS: metoprolol tartrate 50mg tablet PO SCH ×2 (09:12→20:18)
[2021-10-25] MEDS: docusate sod 100mg capsule PO SCH ×2 (09:12→20:19)
--- NOTE | 2021-10-25 09:48 | NUR ---
Initial: Pt admit dx A.fib, CHF, and cellulitis per EMR. Pt is on 2.0L HFNC, currently on Heart Healthy/1.5L fluid restriction diet w/ 36% avg PO x first 4 meals partially meeting needs. Per WOC note pt w/ Stage 3 PI to sacrococcygeal area, 6.8cm x 5.0cm x 0.2cm, and noted skin beneath pubis pad is excoriated. Pt would benefit from Leandro smoothies BIDBD to assist with wound healing. LBM 3/, receiving routine colace per EMR. Will continue to follow and make nutrition intervention recommendations pending further PO trends. Recommendations: 1. Continue Heart Healthy/1.5L dry tray per MD 2. Leandro smoothies BIDBD; pending MD verification 3. Routine bowel care 4. Weekly scaled wts Addendum: 10/25/21 at [address] Amended: Links added. Addendum: 10/25/21 at [address] I have reviewed assessment by internal grinder
--- NOTE | 2021-10-25 10:10 | NUR ---
Wound consult: Patient's wound has already been addressed with appropriate nutrition recommendations, see below. Addendum: 10/25/21 at [address] Amended: Links added.
--- NOTE | 2021-10-25 11:03 | NUR ---
paged Dr. Aponte regarding patients pain and asking for more frequent pain medication. PAGER ID: [phone] MESSAGE: [phone], Nick Moonia. Patient is in a lot of pain. She is asking for the Fountain to be given more frequent than q8hrs. Thoughts? Pamela [facility] [phone].
[2021-10-25 11:49] VITALS: BP 132/42
[2021-10-25] MEDS: JUVEN Smoothie Arginine/Glut./Ca2+Bmb (Juven 19.3pkt) 240ml cup PO SCH (17:30)
[2021-10-25 18:00] VITALS: BP 117/51
--- NOTE | 2021-10-25 18:23 | NUR ---
Problems reprioritized. Patient report given, questions answered & plan of care reviewed with Jenn Patricia, patient stable at transfer of care.
[2021-10-25 22:00] VITALS: BP 147/65
[2021-10-26 02:00] VITALS: BP 135/55
[2021-10-26] MEDS: HYDROcodone/acetaminophen 5mg/325mg tablet PO PRN ×3 (05:01→15:20)
[2021-10-26 06:00] VITALS: BP 136/53
--- NOTE | 2021-10-26 06:26 | NUR ---
Problems reprioritized. Patient report given, questions answered & plan of care reviewed with Cody.
[2021-10-26 06:37] LABS: BASOPHILS # (AUTO) 0.1 X10'3 (0-0.2); BASOPHILS % (AUTO) 0.4 % (0-1); EOSINOPHILS # (AUTO) 0.1 X10'3 (0-0.9); EOSINOPHILS % (AUTO) 1.1 % (0-6); HEMATOCRIT 26.7 % (35.0-45.0); HEMOGLOBIN 8.6 g/dl (12.0-16.0); LYMPHOCYTES # (AUTO) 0.8 X10'3 (1.1-4.8); LYMPHOCYTES % (AUTO) 5.7 % (21-51); MEAN CORPUSCULAR HEMOGLOBIN 27.6 PG (27.0-31.0); MEAN CORPUSCULAR HGB CONC 32.4 g/dL (33.0-36.5); MEAN CORPUSCULAR VOLUME 85.4 FL (78-98); MONOCYTES # (AUTO) 1.7 X10'3 (0-0.9); MONOCYTES % (AUTO) 12.5 % (2-12); NEUTROPHILS # (AUTO) 11.2 X10'3 (1.8-7.7); NEUTROPHILS % (AUTO) 80.3 % (42-75); PLATELET COUNT 399 X10'3 (140-440); RED BLOOD COUNT 3.13 X10'6 (4.20-5.60); RED CELL DISTRIBUTION WIDTH 18.7 % (11.5-14.5); WHITE BLOOD COUNT 13.9 X10'3 (4.5-11.0)
[2021-10-26 06:54] LABS: ALANINE AMINOTRANSFERASE 11 U/L (12-78); ALBUMIN 1.7 G/DL (3.4-5.0); ALBUMIN/GLOBULIN RATIO 0.4 (1.1-1.5); ALKALINE PHOSPHATASE 123 IU/L (46-116); ANION GAP 6 (8-16); ASPARTATE AMINO TRANSFERASE 17 U/L (10-37); BILIRUBIN,TOTAL 0.4 MG/DL (0.1-1.0); BLOOD UREA NITROGEN 29 MG/DL (7-18); BUN/CREATININE RATIO 35.8 (6.6-38.0); CALCIUM 8.6 MG/DL (8.5-10.1); CHLORIDE 95 MMOL/L (99-107); CREATININE 0.81 MG/DL (0.40-0.90); GLUCOSE 91 MG/DL (70-104); MAGNESIUM 1.8 MG/DL (1.5-2.4); POTASSIUM 3.6 MMOL/L (3.5-5.1); SODIUM 132 MMOL/L (135-145); TOTAL CARBON DIOXIDE 30.6 MMOL/L (24-32); TOTAL PROTEIN 5.9 G/DL (6.4-8.2); eGFR 68 ML/MIN
[2021-10-26] MEDS: JUVEN Smoothie Arginine/Glut./Ca2+Bmb (Juven 19.3pkt) 240ml cup PO SCH ×2 (07:30→17:30)
[2021-10-26 07:50] LABS: ANISOCYTOSIS 2+; PLATELET ESTIMATE NORMAL
[2021-10-26 07:51] LABS: HYPOCHROMASIA 1+
[2021-10-26] MEDS: K and/or MAG REPLACEMENT MC SCH ×2 (08:00→19:10)
[2021-10-26] MEDS: furosemide 40mg/4ml inj IV SCH ×2 (09:53→19:07)
[2021-10-26] MEDS: CefTRIAXone/D5W-Rocephin 1gm 50 ML IV SCH (09:54)
[2021-10-26] MEDS: LIDOcaine 5% patch TP SCH (09:54)
[2021-10-26] MEDS: potassium Cl 20 mEq SR tablet PO SCH (10:31)
[2021-10-26] MEDS: apixaban 5mg tablet PO SCH ×2 (10:32→19:07)
[2021-10-26] MEDS: metoprolol tartrate 50mg tablet PO SCH ×2 (10:32→19:08)
[2021-10-26] MEDS: docusate sod 100mg capsule PO SCH ×2 (10:32→19:07)
[2021-10-26 11:00] VITALS: BP 159/69
[2021-10-26 15:00] VITALS: BP 157/60
[2021-10-26 18:00] VITALS: BP 157/70
[2021-10-27] MEDS: HYDROcodone/acetaminophen 5mg/325mg tablet PO PRN ×6 (01:37→22:57)
[2021-10-27 03:00] VITALS: BP 153/58
[2021-10-27 06:00] VITALS: BP 143/45
--- NOTE | 2021-10-27 06:38 | NUR ---
Problems reprioritized. Patient report given, questions answered & plan of care reviewed with Maribel FRITZ.
[2021-10-27 07:04] LABS: BASOPHILS % (AUTO) 0.2 % (0-1); EOSINOPHILS # (AUTO) 0.2 X10'3 (0-0.9); EOSINOPHILS % (AUTO) 1.3 % (0-6); HEMATOCRIT 25.1 % (35.0-45.0); HEMOGLOBIN 8.3 g/dl (12.0-16.0); LYMPHOCYTES # (AUTO) 1.1 X10'3 (1.1-4.8); LYMPHOCYTES % (AUTO) 8.9 % (21-51); MEAN CORPUSCULAR HEMOGLOBIN 27.9 PG (27.0-31.0); MEAN CORPUSCULAR VOLUME 84.6 FL (78-98); MEAN PLATELET VOLUME 6.8 FL (7.4-10.4); MONOCYTES # (AUTO) 1.4 X10'3 (0-0.9); NEUTROPHILS # (AUTO) 9.4 X10'3 (1.8-7.7); NEUTROPHILS % (AUTO) 77.6 % (42-75); PLATELET COUNT 390 X10'3 (140-440); RED BLOOD COUNT 2.97 X10'6 (4.20-5.60); RED CELL DISTRIBUTION WIDTH 18.1 % (11.5-14.5); WHITE BLOOD COUNT 12.1 X10'3 (4.5-11.0)
[2021-10-27 07:13] LABS: ALANINE AMINOTRANSFERASE 11 U/L (12-78); ALBUMIN 1.7 G/DL (3.4-5.0); ALBUMIN/GLOBULIN RATIO 0.4 (1.1-1.5); ALKALINE PHOSPHATASE 112 IU/L (46-116); ANION GAP 9 (8-16); ASPARTATE AMINO TRANSFERASE 15 U/L (10-37); BILIRUBIN,TOTAL 0.4 MG/DL (0.1-1.0); BLOOD UREA NITROGEN 28 MG/DL (7-18); CALCIUM 8.5 MG/DL (8.5-10.1); CHLORIDE 96 MMOL/L (99-107); GLUCOSE 91 MG/DL (70-104); MAGNESIUM 1.8 MG/DL (1.5-2.4); POTASSIUM 3.7 MMOL/L (3.5-5.1); SODIUM 136 MMOL/L (135-145); TOTAL CARBON DIOXIDE 31.3 MMOL/L (24-32); TOTAL PROTEIN 5.9 G/DL (6.4-8.2); eGFR 69 ML/MIN
[2021-10-27] MEDS: JUVEN Smoothie Arginine/Glut./Ca2+Bmb (Juven 19.3pkt) 240ml cup PO SCH ×2 (07:30→17:30)
[2021-10-27] MEDS: LIDOcaine 5% patch TP SCH (07:52)
[2021-10-27] MEDS: CefTRIAXone/D5W-Rocephin 1gm 50 ML IV SCH (07:52)
[2021-10-27] MEDS: furosemide 40mg/4ml inj IV SCH ×2 (07:52→19:01)
[2021-10-27] MEDS: apixaban 5mg tablet PO SCH ×2 (07:53→19:01)
[2021-10-27] MEDS: potassium Cl 20 mEq SR tablet PO SCH (07:53)
[2021-10-27] MEDS: metoprolol tartrate 50mg tablet PO SCH ×2 (07:53→19:09)
[2021-10-27] MEDS: K and/or MAG REPLACEMENT MC SCH ×2 (08:00→19:04)
[2021-10-27] MEDS: docusate sod 100mg capsule PO SCH ×2 (08:00→19:01)
[2021-10-27 08:03] LABS: TOTAL CELLS COUNTED 100
[2021-10-27 08:04] LABS: ANISOCYTOSIS 2+; MICROCYTOSIS 1+; PLATELET ESTIMATE NORMAL; POIKILOCYTOSIS FEW
[2021-10-27 11:00] VITALS: BP 145/54
[2021-10-27 15:00] VITALS: BP 149/56
--- NOTE | 2021-10-27 15:41 | NUR ---
Reassessment: Pt remains on Heart Healthy/1.5L fluid restriction diet w/ recent 50% average intake of meals meeting 75% energy needs and 73% protein needs. agronomy internship spoke w/ pt at bedside and discussed preferences. RN documented pt refused intake of first three Leandro smoothies, though pt noted she did not realize the smoothies were to promote wound healing and is now motivated to drink them. Pt further mentioned she does not typically eat a lot at home, and finds it difficult to finish her meals this admit, though she is willing to drink an Ensure Enlive w/ lunch to help meet protein and energy needs. LBM 10/27, receiving routine colace though refused dose 10/27 per EMR. Will continue to follow for additional nutrition intervention needs this admit. Recommendations: 1. Continue Heart Healthy/1.5L dry tray per MD 2. Leandro smoothies BIDBD 3. Ensure Enlive w/ lunch; pending MD verification 4. Routine bowel care 5. Weekly scaled wts Addendum: 10/27/21 at 1542 by Kelsi Webber [employer] [address] [address] Amended: Links added. Addendum: 10/27/21 at [address] I have reviewed and agree with note by Laborer Vegetable FarmKell Schultz RD
[2021-10-27 19:06] VITALS: BP 152/49
[2021-10-27 23:16] VITALS: BP 150/49
[2021-10-28] MEDS: HYDROcodone/acetaminophen 5mg/325mg tablet PO PRN ×5 (03:40→20:53)
[2021-10-28 03:43] VITALS: BP 160/69
[2021-10-28 06:00] VITALS: BP 135/48
[2021-10-28 07:12] LABS: BASOPHILS % (AUTO) 0.3 % (0-1); EOSINOPHILS # (AUTO) 0.2 X10'3 (0-0.9); EOSINOPHILS % (AUTO) 1.7 % (0-6); HEMATOCRIT 25.8 % (35.0-45.0); HEMOGLOBIN 8.4 g/dl (12.0-16.0); LYMPHOCYTES # (AUTO) 1.2 X10'3 (1.1-4.8); LYMPHOCYTES % (AUTO) 8.9 % (21-51); MEAN CORPUSCULAR HEMOGLOBIN 27.8 PG (27.0-31.0); MEAN CORPUSCULAR HGB CONC 32.7 g/dL (33.0-36.5); MEAN CORPUSCULAR VOLUME 85.2 FL (78-98); MEAN PLATELET VOLUME 6.9 FL (7.4-10.4); MONOCYTES # (AUTO) 1.3 X10'3 (0-0.9); MONOCYTES % (AUTO) 9.9 % (2-12); NEUTROPHILS # (AUTO) 10.5 X10'3 (1.8-7.7); NEUTROPHILS % (AUTO) 79.2 % (42-75); PLATELET COUNT 414 X10'3 (140-440); RED BLOOD COUNT 3.03 X10'6 (4.20-5.60); RED CELL DISTRIBUTION WIDTH 17.8 % (11.5-14.5); WHITE BLOOD COUNT 13.2 X10'3 (4.5-11.0)
[2021-10-28 07:28] LABS: ALANINE AMINOTRANSFERASE 13 U/L (12-78); ALBUMIN 1.7 G/DL (3.4-5.0); ALBUMIN/GLOBULIN RATIO 0.4 (1.1-1.5); ALKALINE PHOSPHATASE 110 IU/L (46-116); ANION GAP 7 (8-16); ASPARTATE AMINO TRANSFERASE 20 U/L (10-37); BILIRUBIN,TOTAL 0.4 MG/DL (0.1-1.0); BLOOD UREA NITROGEN 23 MG/DL (7-18); BUN/CREATININE RATIO 29.5 (6.6-38.0); CALCIUM 8.5 MG/DL (8.5-10.1); CHLORIDE 94 MMOL/L (99-107); CREATININE 0.78 MG/DL (0.40-0.90); GLUCOSE 90 MG/DL (70-104); POTASSIUM 3.8 MMOL/L (3.5-5.1); SODIUM 133 MMOL/L (135-145); TOTAL CARBON DIOXIDE 32.5 MMOL/L (24-32); eGFR 71 ML/MIN
[2021-10-28] MEDS: JUVEN Smoothie Arginine/Glut./Ca2+Bmb (Juven 19.3pkt) 240ml cup PO SCH ×2 (07:30→17:10)
[2021-10-28 07:56] LABS: TOTAL CELLS COUNTED 100
[2021-10-28 07:57] LABS: ANISOCYTOSIS 1+; MICROCYTOSIS 1+; PLATELET ESTIMATE NORMAL; POIKILOCYTOSIS FEW
[2021-10-28] MEDS: K and/or MAG REPLACEMENT MC SCH ×2 (08:00→19:42)
[2021-10-28] MEDS: docusate sod 100mg capsule PO SCH ×2 (08:00→19:36)
[2021-10-28] MEDS: apixaban 5mg tablet PO SCH ×2 (08:15→19:36)
[2021-10-28] MEDS: metoprolol tartrate 50mg tablet PO SCH ×2 (08:15→19:36)
[2021-10-28] MEDS: furosemide 40mg/4ml inj IV SCH (08:16)
[2021-10-28] MEDS: LIDOcaine 5% patch TP SCH (08:16)
[2021-10-28] MEDS: CefTRIAXone/D5W-Rocephin 1gm 50 ML IV SCH (08:16)
[2021-10-28] MEDS: potassium Cl 20 mEq SR tablet PO SCH (08:17)
[2021-10-28 11:00] VITALS: BP 143/53
[2021-10-28 15:00] VITALS: BP 150/49
[2021-10-28 18:00] VITALS: BP 148/69
[2021-10-28] MEDS: furosemide 20 MG/2 ML vial IV SCH (19:37)
[2021-10-28 22:00] VITALS: BP 152/54
[2021-10-29] MEDS: HYDROcodone/acetaminophen 5mg/325mg tablet PO PRN ×3 (01:20→09:24)
[2021-10-29 02:00] VITALS: BP 145/60
[2021-10-29 06:00] VITALS: BP 146/48
--- NOTE | 2021-10-29 06:19 | NUR ---
Problems reprioritized. Patient report given, questions answered & plan of care reviewed with Maribel FRITZ.
[2021-10-29] MEDS: furosemide 20 MG/2 ML vial IV SCH (07:26)
[2021-10-29 07:27] VITALS: BP_SYST 146
[2021-10-29] MEDS: metoprolol tartrate 50mg tablet PO SCH (07:27)
[2021-10-29] MEDS: apixaban 5mg tablet PO SCH (07:27)
[2021-10-29] MEDS: LIDOcaine 5% patch TP SCH (07:27)
[2021-10-29] MEDS: CefTRIAXone/D5W-Rocephin 1gm 50 ML IV SCH (07:27)
[2021-10-29] MEDS: JUVEN Smoothie Arginine/Glut./Ca2+Bmb (Juven 19.3pkt) 240ml cup PO SCH (07:30)
[2021-10-29] MEDS: K and/or MAG REPLACEMENT MC SCH (08:00)
[2021-10-29] MEDS: docusate sod 100mg capsule PO SCH (08:00)
[2021-10-29] MEDS: potassium Cl 20 mEq SR tablet PO SCH (09:23)
--- NOTE | 2021-10-29 10:31 | NUR ---
Report called to at 0830. Peripheral IV removed, catheter tip intact. Kamara will remain in place. Transport picked pt. up at 0954.
[2021-10-30] MEDS ORDERED: NYST15OI14 TOP (13:38)
[2021-10-30] MEDS ORDERED: BUDE10.2 PO (13:38)
[2021-10-30] MEDS ORDERED: ALBU8.5H17 IH (13:38)
[2021-10-30] MEDS ORDERED: METO-467 PO (15:16)
[2021-10-30] MEDS ORDERED: DOCU-148 PO (15:16)
[2021-10-30] MEDS ORDERED: LINE600T11 PO (15:16)
[2021-10-30] MEDS ORDERED: APIX5TAB3 PO (15:16)
== END 2021-10-29 09:54 | DRG 871 ==
LOC: ER 18:01 → ED HOLD 20:08 → PCU 3S 23:44
PROVIDERS: ADMIT Internal Medicine; ATTEND Internal Medicine
DX: A41.9 Sepsis, unspecified organism (principal); E43 Unspecified severe protein-calorie malnutrition; I50.33 Acute on chronic diastolic (congestive) heart failure; L03.116 Cellulitis of left lower limb; E87.1 Hypo-osmolality and hyponatremia; M48.50XA Collapsed vertebra, not elsewhere classified, site unspecified, initial encounter for fracture; L03.115 Cellulitis of right lower limb; L03.317 Cellulitis of buttock; I13.0 Hypertensive heart and chronic kidney disease with heart failure and stage 1 through stage 4 chronic kidney disease, or unspecified chronic kidney disease; Z20.822 Contact with and (suspected) exposure to COVID-19; I48.91 Unspecified atrial fibrillation; E11.22 Type 2 diabetes mellitus with diabetic chronic kidney disease; L89.109 Pressure ulcer of unspecified part of back, unspecified stage; L89.309 Pressure ulcer of unspecified buttock, unspecified stage; D50.9 Iron deficiency anemia, unspecified; N18.9 Chronic kidney disease, unspecified; L89.899 Pressure ulcer of other site, unspecified stage; M54.9 Dorsalgia, unspecified; N76.2 Acute vulvitis; G89.4 Chronic pain syndrome; I35.0 Nonrheumatic aortic (valve) stenosis; J44.9 Chronic obstructive pulmonary disease, unspecified; M79.3 Panniculitis, unspecified; Z87.891 Personal history of nicotine dependence; Z90.710 Acquired absence of both cervix and uterus; Z99.3 Dependence on wheelchair; Z68.30 Body mass index [BMI] 30.0-30.9, adult; Z90.49 Acquired absence of other specified parts of digestive tract; Z79.899 Other long term (current) drug therapy; Z98.42 Cataract extraction status, left eye; Z98.41 Cataract extraction status, right eye; Z74.01 Bed confinement status
CPT/HCPCS: 36415; 71045; 80053; 80061; 81001; 82607; 82728; 83036; 83540; 83550; 83605; 83735; 83880; 84145; 84443; 84484; 85007; 85008; 85025; 85610; 85730; 87040; 87081; 87088; 87635; 93005; 93306; 97110; 97161; 97530; 99285; C9803; G0378; J0696; J1940; J2270; J3490

== ENCOUNTER 2021-10-30 11:22 | Inpatient (IN) | payer BC, MEDICAID ==
[~2021-10-30] VITALS: Ht 165.1 cm; Wt 78.2 kg
[~2021-10-30 11:22] MED LIST changes: -AMLO5TAB16 PO; +FURO40TA4 PO; +HYDR-3972 PO; -LEVO500T90 PO; -METR-159 PO; -NO HOME MEDS; -PANT40TA54 PO; +POTA8CAP20 PO
[2021-10-30 12:26] LABS: CLARITY,URINE CLOUDY (Clear); COLOR,URINE YELLOW (Yellow); GLUCOSE, URINE NEGATIVE (Neg); KETONES,URINE TRACE mg/dl (Neg); LEUKOCYTE ESTERASE ,URINE TRACE (Neg); NITRITES, URINE NEGATIVE (Neg); OCCULT BLOOD,URINE LARGE (Neg); PH,URINE 5.5 (4.8-8.0); PROTEIN,URINE 100 mg/dl (Neg); UROBILINOGEN,URINE 0.2 E.U/dL (0.2-1.0)
[2021-10-30 12:37] LABS: UA COLLECTION TYPE NON-SPECIFIED
[2021-10-30 12:37] LABS: BASOPHILS # (AUTO) 0.1 X10'3 (0-0.2); BASOPHILS % (AUTO) 0.3 % (0-1); EOSINOPHILS # (AUTO) 0.1 X10'3 (0-0.9); EOSINOPHILS % (AUTO) 0.6 % (0-6); HEMATOCRIT 29.1 % (35.0-45.0); LYMPHOCYTES # (AUTO) 0.9 X10'3 (1.1-4.8); MEAN CORPUSCULAR HEMOGLOBIN 26.9 PG (27.0-31.0); MEAN CORPUSCULAR HGB CONC 31.1 g/dL (33.0-36.5); MEAN CORPUSCULAR VOLUME 86.4 FL (78-98); MONOCYTES # (AUTO) 1.2 X10'3 (0-0.9); MONOCYTES % (AUTO) 5.1 % (2-12); NEUTROPHILS # (AUTO) 20.6 X10'3 (1.8-7.7); PLATELET COUNT 448 X10'3 (140-440); RED BLOOD COUNT 3.36 X10'6 (4.20-5.60); RED CELL DISTRIBUTION WIDTH 18.4 % (11.5-14.5); WHITE BLOOD COUNT 22.8 X10'3 (4.5-11.0)
[2021-10-30 12:38] LABS: RBC,URINE TNTC /HPF (0-2); WBC,URINE 20-30 /HPF (0-4)
[2021-10-30 12:39] LABS: BACTERIA,URINE 1+ /HPF (Neg); MUCUS STRANDS NONE SEEN /LPF (Neg); SQUAMOUS EPITHELIAL CELL,UR FEW /LPF (FEW)
[2021-10-30 12:47] LABS: APTT 37 SECONDS (22-32)
[2021-10-30 12:49] LABS: ALBUMIN 1.9 G/DL (3.4-5.0); ALBUMIN/GLOBULIN RATIO 0.4 (1.1-1.5); ALKALINE PHOSPHATASE 112 IU/L (46-116); ANION GAP 8 (8-16); ASPARTATE AMINO TRANSFERASE 24 U/L (10-37); BILIRUBIN,TOTAL 0.5 MG/DL (0.1-1.0); BLOOD UREA NITROGEN 20 MG/DL (7-18); BUN/CREATININE RATIO 25.3 (6.6-38.0); CALCIUM 8.7 MG/DL (8.5-10.1); CHLORIDE 93 MMOL/L (99-107); CREATININE 0.79 MG/DL (0.40-0.90); GLUCOSE 100 MG/DL (70-104); POTASSIUM 4.5 MMOL/L (3.5-5.1); SODIUM 133 MMOL/L (135-145); TOTAL CARBON DIOXIDE 32.2 MMOL/L (24-32); TOTAL PROTEIN 6.4 G/DL (6.4-8.2); eGFR 70 ML/MIN
[2021-10-30 12:57] LABS: ALANINE AMINOTRANSFERASE 11 U/L (12-78)
--- NOTE | 2021-10-30 13:08 | NUR ---
Pt has multiple ulcers on buttocks and domenica area. Pt has a maddox (came in with it). Rectal tube placed by me with bandages and cream to buttocks and yeast areas. Pt moved up in bed. 4 attempts to IV. IV R wrist 20g placed, fluids infusing. Diaper and bedding changed. Pt bleeding large red clots out of rectum, lying in a pool of blood.
[2021-10-30] MEDS ORDERED: ondansetron/PF 4mg/2ml inj IV ONE (13:10)
[2021-10-30] MEDS ORDERED: fentaNYL/PF 50MCG/1 ML 2ML syringe IV ONE ×2 (13:10→14:10)
[2021-10-30] MEDS ORDERED: TRANEXAMIC ACID 1 GM IN NACL,ISO-OS 100 ML IV ONE (13:10)
[2021-10-30] MEDS ORDERED: NYST15OI14 TOP (13:38)
[2021-10-30] MEDS ORDERED: BUDE10.2 PO (13:38)
[2021-10-30] MEDS ORDERED: ALBU8.5H17 IH (13:38)
[2021-10-30] MEDS ORDERED: iohexol 300mg/ml 100ml inj. ONE ×2 (14:04→14:22)
[2021-10-30] MEDS ORDERED: normal saline 1000ML IV soln IV ONE (14:05)
[2021-10-30] MEDS ORDERED: CefTRIAXone 2gm/D5W 50ml BAG 50 ML IV ONE (14:05)
[2021-10-30] MEDS ORDERED: vancomycin/NS 1 GM ADD-VANTAGE 250 ML IV ONE (14:05)
[2021-10-30] MEDS ORDERED: normal saline 1000ml 1,000 ML IV ONE (14:30)
[2021-10-30] MEDS: normal saline 1000ml 1,000 ML IV SCH (14:30)
[2021-10-30] MEDS ORDERED: albuterol 2.5 MG/3 ML nebule NEB PRN (14:30)
[2021-10-30] MEDS ORDERED: diphenhydrAMINE 25mg capsule PO PRN (14:35)
[2021-10-30] MEDS ORDERED: HYDROcodone/acetaminophen 5mg/325mg tablet PO PRN (14:35)
[2021-10-30] MEDS ORDERED: potassium Cl 20 mEq SR tablet PO PRN ×2 (14:35)
[2021-10-30] MEDS ORDERED: magnesium 2GM in 50ml NS 50 ML IV PRN (14:35)
[2021-10-30] MEDS ORDERED: bisacodyl 10mg suppository rectal RC PRN (14:35)
[2021-10-30] MEDS ORDERED: morphine 2 MG/ML inj. syringe IV PRN ×2 (14:35→20:45)
[2021-10-30] MEDS ORDERED: PEG 3350/Na sulf,bicarb,Cl/KCl oral sol 4 liter bottle PO ONE ×2 (14:35→15:10)
[2021-10-30] MEDS ORDERED: acetaminophen 325mg tablet PO PRN ×2 (14:35)
[2021-10-30] MEDS ORDERED: magnesium hydroxide 30ml (MOM) UD suspension PO PRN (14:35)
[2021-10-30] MEDS ORDERED: ondansetron/PF 4mg/2ml inj IV PRN (14:35)
[2021-10-30] MEDS ORDERED: acetaminophen 650mg rectal suppository RC PRN (14:35)
[2021-10-30] MEDS ORDERED: magnesium 4gm in 100ml NS 100 ML IV PRN (14:35)
[2021-10-30] MEDS ORDERED: potassium CL 10mEq/100ml bag 100 ML IV PRN (14:35)
[2021-10-30] MEDS ORDERED: magnesium Cl slow-release 64mg tablet PO PRN (14:35)
[2021-10-30] MEDS ORDERED: LINE600T11 PO (15:16)
[2021-10-30] MEDS ORDERED: APIX5TAB3 PO (15:16)
[2021-10-30] MEDS ORDERED: DOCU-148 PO (15:16)
[2021-10-30] MEDS ORDERED: METO-467 PO (15:16)
--- NOTE | 2021-10-30 15:19 | NUR ---
Pt has daughter at bedside. She has decided that she would like Pallative care and is refusing CT. Pt still ok with blood transfusion if needed and consent has been signed.
--- NOTE | 2021-10-30 15:26 | NUR ---
HgA1C done on the per lab, won't repeat due to no exchange operator 3 months-IDALIA
[2021-10-30 16:08] LABS: MEAN CORPUSCULAR HEMOGLOBIN 27.4 PG (27.0-31.0); MEAN CORPUSCULAR HGB CONC 31.9 g/dL (33.0-36.5); PLATELET COUNT 372 X10'3 (140-440); RED BLOOD COUNT 2.42 X10'6 (4.20-5.60); RED CELL DISTRIBUTION WIDTH 17.5 % (11.5-14.5)
[2021-10-30 16:12] LABS: WHITE BLOOD COUNT 27.5 X10'3 (4.5-11.0)
--- NOTE | 2021-10-30 16:12 | NUR ---
Critical lab Hgb 6.6, Hct 20.8, WBC 27.5
[2021-10-30 16:13] LABS: HEMATOCRIT 20.8 % (35.0-45.0); HEMOGLOBIN 6.6 g/dl (12.0-16.0)
[2021-10-30] MEDS: piperacillin/tazo 3.375gm/50ml 50 ML IV SCH ×2 (16:42→23:44)
--- NOTE | 2021-10-30 16:42 | NUR ---
Pt still c/o pain. Will ask MD for pain relief.
[2021-10-30 17:19] VITALS: BP 101/41
[2021-10-30 17:35] VITALS: BP 94/40
[2021-10-30 17:36] VITALS: BP 94/40
[2021-10-30] MEDS: morphine 2 MG/ML inj. syringe IV PRN ×2 (17:40→23:24)
[2021-10-30 19:30] VITALS: BP 129/62
--- NOTE | 2021-10-30 19:54 | NUR ---
First encounter with pt., c/o pain and discomfort; assisted to comfort.
[2021-10-30] MEDS: docusate sod 100mg capsule PO SCH (20:00)
[2021-10-30] MEDS: albuterol 2.5 MG/3 ML nebule NEB SCH (20:01)
[2021-10-30] MEDS: budesonide 0.5mg/2ml UD nebule IH SCH (20:02)
[2021-10-30 20:31] LABS: CLARITY,URINE CLOUDY (Clear); COLOR,URINE YELLOW (Yellow); GLUCOSE, URINE NEGATIVE (Neg); KETONES,URINE TRACE mg/dl (Neg); LEUKOCYTE ESTERASE ,URINE TRACE (Neg); NITRITES, URINE NEGATIVE (Neg); OCCULT BLOOD,URINE LARGE (Neg); PROTEIN,URINE 30 mg/dl (Neg); UROBILINOGEN,URINE 0.2 E.U/dL (0.2-1.0)
[2021-10-30 20:34] LABS: UA COLLECTION TYPE NON-SPECIFIED
[2021-10-30 20:38] LABS: BACTERIA,URINE 1+ /HPF (Neg); RBC,URINE TNTC /HPF (0-2); SQUAMOUS EPITHELIAL CELL,UR FEW /LPF (FEW); WBC,URINE 20-30 /HPF (0-4)
[2021-10-30 20:39] LABS: WBC CLUMPS,URINE FEW /HPF (NEGATIVE)
[2021-10-30] MEDS: HYDROcodone/acetaminophen 10/325mg tab PO PRN (21:15)
[2021-10-30 21:25] LABS: HEMATOCRIT 23.8 % (35.0-45.0); HEMOGLOBIN 7.6 g/dl (12.0-16.0); MEAN CORPUSCULAR HEMOGLOBIN 27.5 PG (27.0-31.0); MEAN PLATELET VOLUME 7.1 FL (7.4-10.4); PLATELET COUNT 355 X10'3 (140-440); RED BLOOD COUNT 2.77 X10'6 (4.20-5.60); RED CELL DISTRIBUTION WIDTH 17.5 % (11.5-14.5)
[2021-10-30 21:28] LABS: WHITE BLOOD COUNT 28.9 X10'3 (4.5-11.0)
[2021-10-30] MEDS: K and/or MAG REPLACEMENT MC SCH (22:00)
[2021-10-30] MEDS: mag hydrox/Alum hydrox/simeth 30ml oral suspension PO PRN (22:00)
--- NOTE | 2021-10-30 22:00 | NUR ---
PT TRANSFFERED FROM ER. DAUGHTER IS AT THE BEDSIDE. RECEIVED REPORT FROM LAM GOMEZ PRIOR TO PTS ARRIVAL.
[2021-10-30 22:30] VITALS: BP 91/39
[2021-10-30] MEDS: nystatin 15 GM ointment TP SCH (23:00)
[2021-10-31] VITALS (11 sets, daily range): BP systolic 93–128; BP diastolic 31–57
[2021-10-31] MEDS: albuterol 2.5 MG/3 ML nebule NEB SCH ×4 (02:26→20:03)
[2021-10-31] MEDS: morphine 2 MG/ML inj. syringe IV PRN ×4 (03:27→17:34)
[2021-10-31 03:49] LABS: BASOPHILS # (AUTO) 0.1 X10'3 (0-0.2); BASOPHILS % (AUTO) 0.3 % (0-1); EOSINOPHILS # (AUTO) 0.1 X10'3 (0-0.9); EOSINOPHILS % (AUTO) 0.3 % (0-6); LYMPHOCYTES # (AUTO) 1.4 X10'3 (1.1-4.8); LYMPHOCYTES % (AUTO) 5.1 % (21-51); MEAN CORPUSCULAR HEMOGLOBIN 27.4 PG (27.0-31.0); MEAN CORPUSCULAR VOLUME 85.6 FL (78-98); MEAN PLATELET VOLUME 6.9 FL (7.4-10.4); MONOCYTES # (AUTO) 1.7 X10'3 (0-0.9); NEUTROPHILS # (AUTO) 24.5 X10'3 (1.8-7.7); NEUTROPHILS % (AUTO) 88.3 % (42-75); PLATELET COUNT 295 X10'3 (140-440); RED BLOOD COUNT 2.46 X10'6 (4.20-5.60); RED CELL DISTRIBUTION WIDTH 17.7 % (11.5-14.5)
[2021-10-31 03:54] LABS: WHITE BLOOD COUNT 27.7 X10'3 (4.5-11.0)
[2021-10-31 03:55] LABS: HEMOGLOBIN 6.7 g/dl (12.0-16.0)
--- NOTE | 2021-10-31 04:04 | NUR ---
NOTIFIED DR. SÁNCHEZ CRITICAL LAB VALUE OF WBC 27.7, HGB 6.7, HCT 21. RECEIVED ORDER FOR 2U BLOOD TRANSFUSION.
[2021-10-31 04:06] LABS: ALANINE AMINOTRANSFERASE 10 U/L (12-78); ALBUMIN 1.5 G/DL (3.4-5.0); ALBUMIN/GLOBULIN RATIO 0.4 (1.1-1.5); ALKALINE PHOSPHATASE 81 IU/L (46-116); ANION GAP 9 (8-16); ASPARTATE AMINO TRANSFERASE 22 U/L (10-37); BILIRUBIN,TOTAL 0.5 MG/DL (0.1-1.0); BLOOD UREA NITROGEN 19 MG/DL (7-18); BUN/CREATININE RATIO 22.4 (6.6-38.0); CALCIUM 7.7 MG/DL (8.5-10.1); CHLORIDE 99 MMOL/L (99-107); CHOL/HDL RATIO 2.5 (0.00-4.99); CHOLESTEROL 76 MG/DL (0-200); CREATININE 0.85 MG/DL (0.40-0.90); GLUCOSE 87 MG/DL (70-104); HDL CHOLESTEROL 30 MG/DL (35-60); LDL CHOLESTEROL 33 MG/DL (50-100); MAGNESIUM 1.7 MG/DL (1.5-2.4); PHOSPHORUS 3.4 MG/DL (2.3-4.5); POTASSIUM 4.1 MMOL/L (3.5-5.1); SODIUM 134 MMOL/L (135-145); TOTAL CARBON DIOXIDE 26.4 MMOL/L (24-32); TOTAL PROTEIN 5.1 G/DL (6.4-8.2); TRIGLYCERIDES 67 MG/DL (20-135); eGFR 64 ML/MIN
[2021-10-31] MEDS: HYDROcodone/acetaminophen 10/325mg tab PO PRN ×3 (07:32→23:03)
[2021-10-31] MEDS: docusate sod 100mg capsule PO SCH ×2 (07:32→21:45)
[2021-10-31 07:41] LABS: ANISOCYTOSIS 1+; PLATELET ESTIMATE NORMAL; TOTAL CELLS COUNTED 100
[2021-10-31 07:42] LABS: ELLIPTOCYTES FEW
[2021-10-31] MEDS: nystatin 15 GM ointment TP SCH ×2 (08:00→20:00)
[2021-10-31] MEDS: K and/or MAG REPLACEMENT MC SCH ×2 (08:00→20:00)
[2021-10-31 09:03] LABS: HEMATOCRIT 24.6 % (35.0-45.0); HEMOGLOBIN 7.9 g/dl (12.0-16.0); MEAN CORPUSCULAR HEMOGLOBIN 27.8 PG (27.0-31.0); MEAN CORPUSCULAR VOLUME 86.8 FL (78-98); MEAN PLATELET VOLUME 6.9 FL (7.4-10.4); PLATELET COUNT 266 X10'3 (140-440); RED BLOOD COUNT 2.83 X10'6 (4.20-5.60); RED CELL DISTRIBUTION WIDTH 17.6 % (11.5-14.5); WHITE BLOOD COUNT 21.6 X10'3 (4.5-11.0)
[2021-10-31] MEDS: budesonide 0.5mg/2ml UD nebule IH SCH ×2 (09:48→20:04)
[2021-10-31] MEDS: furosemide 40mg tablet PO SCH (10:18)
[2021-10-31] MEDS: piperacillin/tazo 3.375gm/50ml 50 ML IV SCH ×3 (10:18→21:47)
[2021-10-31] MEDS: normal saline 1000ml 1,000 ML IV SCH ×2 (10:19→15:48)
--- NOTE | 2021-10-31 14:30 | NUR ---
Driss and Malnutrition Consult: Pt admitted w/ rectal bleed, recently discharged 10/29 w/ sepsis and cellulitis per EMR. Per RN malnutrition screen pt reports losing 2-13 lb and having a decreased appetite. Pt's current wt 78kg unscaled, though w/ scaled wt hx 10/29/21 83.7kg per EMR. Per pt's last visit PO intake was avg 50%, though currently on MM5 diet per STUDENT ASSISTANCE COUNSELOR w/ 100% PO intake first meal. Per documentation pt has no edema and mild muscle weakness. Pt w/ stage 3 sacrococcygeal PI and L lower leg cellulitis per last visit's WOC note 10/26/21. Per RN skin assessment pt w/ multiple raw/open spots and w/ healing L lower leg cellulitis. Pt could benefit from Leandro smoothies BIDBD, however it is currently out of stock. LBM 10/31, receiving routine bowel care. Pt does not currently meet minimum two criteria for malnutrition. Will continue to follow for nutrition intervention needs this admit. Recommendations: 1. Continue MM5 diet per STUDENT ASSISTANCE COUNSELOR 2. Leandro smoothies BIDBD once Leandro is back in stock 3. Routine bowel care 4. Scaled wt this admit, subsequent weekly scaled wts Addendum: 10/31/21 at 1431 by Kelsi Webber Director Pediatric RD Amended: Links added. Addendum: 10/31/21 at [address] I have reviewed assessment by underwriting intern
--- NOTE | 2021-10-31 14:43 | NUR ---
pt. refused 1400 svn. no resp. distress observed
--- NOTE | 2021-10-31 14:45 | NUR ---
PRESSURE ULCER EDUCATION: DEFINITION: A pressure ulcer is an area of skin that breaks down when you stay in one position too long. The constant pressure against the skin reduces the blood flow to that area and the affected tissue dies. CAUSES: "Being bedridden or in a wheelchair "Fragile skin "Having a chronic condition, such as diabetes or vascular disease "Inability to move certain parts of your body without assistance "Older age "Incontinence of urine or stool SYMPTOMS: "A reddened area that DOES NOT turn white when pressed on - this can be the beginning of a pressure ulcer "A blister, deep sore or a crater - these can be advanced pressure ulcers FIRST AID: "Relieve the pressure on this area "Keep the area clean and dry "Call your primary doctor if you see any of the above symptoms "DO NOT massage the area "DO NOT use a donut shaped or ring shaped pillow- these actually interfere with the blood flow and cause complications PREVENTION: "Check for pressure ulcers everyday "Change position at least every two hours to relieve pressure "Use items that help relieve pressure- pillows, sheepskin, foam padding, and powders. "Keep skin clean and dry "Eat healthy well balanced meals "Exercise daily IF YOU SEE ANY OF THESE SYMPTOMS WHILE IN THE HOSPITAL - TELL YOUR NURSE IMMEDIATELY. IF YOU SEE ANY OF THESE SYMPTOMS WHILE AT HOME OR HAVE ANY QUESTIONS OR CONCERNS ABOUT PRESSURE ULCERS - CALL YOUR PRIMARY DOCTOR IMMEDIATELY. Addendum: 10/31/21 at 1446 by Lakesha Fontenot RN Amended: Links added.
[2021-10-31] MEDS: mag hydrox/Alum hydrox/simeth 30ml oral suspension PO PRN (15:40)
[2021-10-31] MEDS: VANCOMYCIN 1GM/200ML IVPB 200 ML IV SCH (15:41)
[2021-10-31] MEDS: metoprolol tartrate 50mg tablet PO SCH (21:46)
[2021-11-01] VITALS (9 sets, daily range): BP systolic 109–139; BP diastolic 46–89
[2021-11-01] MEDS: morphine 2 MG/ML inj. syringe IV PRN ×4 (01:29→20:35)
[2021-11-01] MEDS: albuterol 2.5 MG/3 ML nebule NEB SCH ×3 (02:00→20:41)
[2021-11-01] MEDS: HYDROcodone/acetaminophen 10/325mg tab PO PRN ×4 (04:55→23:37)
[2021-11-01 05:45] LABS: BASOPHILS # (AUTO) 0.1 X10'3 (0-0.2); BASOPHILS % (AUTO) 0.3 % (0-1); EOSINOPHILS # (AUTO) 0.2 X10'3 (0-0.9); EOSINOPHILS % (AUTO) 0.8 % (0-6); HEMATOCRIT 29.6 % (35.0-45.0); HEMOGLOBIN 9.4 g/dl (12.0-16.0); LYMPHOCYTES # (AUTO) 1.1 X10'3 (1.1-4.8); LYMPHOCYTES % (AUTO) 5.1 % (21-51); MEAN CORPUSCULAR HEMOGLOBIN 28.3 PG (27.0-31.0); MEAN CORPUSCULAR HGB CONC 31.9 g/dL (33.0-36.5); MEAN CORPUSCULAR VOLUME 88.8 FL (78-98); MEAN PLATELET VOLUME 7.2 FL (7.4-10.4); MONOCYTES # (AUTO) 1.7 X10'3 (0-0.9); MONOCYTES % (AUTO) 7.8 % (2-12); PLATELET COUNT 251 X10'3 (140-440); RED BLOOD COUNT 3.34 X10'6 (4.20-5.60); RED CELL DISTRIBUTION WIDTH 17.1 % (11.5-14.5)
[2021-11-01 06:08] LABS: ALANINE AMINOTRANSFERASE 9 U/L (12-78); ALBUMIN 1.5 G/DL (3.4-5.0); ALBUMIN/GLOBULIN RATIO 0.4 (1.1-1.5); ALKALINE PHOSPHATASE 81 IU/L (46-116); ANION GAP 8 (8-16); ASPARTATE AMINO TRANSFERASE 21 U/L (10-37); BILIRUBIN,TOTAL 0.9 MG/DL (0.1-1.0); BLOOD UREA NITROGEN 19 MG/DL (7-18); BUN/CREATININE RATIO 22.4 (6.6-38.0); CHLORIDE 98 MMOL/L (99-107); CREATININE 0.85 MG/DL (0.40-0.90); GLUCOSE 91 MG/DL (70-104); MAGNESIUM 1.9 MG/DL (1.5-2.4); PHOSPHORUS 2.5 MG/DL (2.3-4.5); POTASSIUM 3.8 MMOL/L (3.5-5.1); SODIUM 134 MMOL/L (135-145); TOTAL CARBON DIOXIDE 27.7 MMOL/L (24-32); TOTAL PROTEIN 5.3 G/DL (6.4-8.2); eGFR 64 ML/MIN
[2021-11-01 06:09] LABS: CALCIUM 8.2 MG/DL (8.5-10.1)
[2021-11-01] MEDS: normal saline 1000ml 1,000 ML IV SCH ×2 (06:30→20:49)
[2021-11-01] MEDS: budesonide 0.5mg/2ml UD nebule IH SCH ×2 (08:00→20:42)
[2021-11-01] MEDS: K and/or MAG REPLACEMENT MC SCH ×2 (08:00→20:00)
[2021-11-01] MEDS: nystatin 15 GM ointment TP SCH ×2 (08:00→20:00)
[2021-11-01] MEDS: metoprolol tartrate 50mg tablet PO SCH ×2 (09:12→19:34)
[2021-11-01] MEDS: furosemide 40mg tablet PO SCH (09:13)
[2021-11-01] MEDS: docusate sod 100mg capsule PO SCH ×2 (09:13→20:00)
[2021-11-01] MEDS: piperacillin/tazo 3.375gm/50ml 50 ML IV SCH ×2 (09:14→16:07)
[2021-11-01] MEDS: VANCOMYCIN 1GM/200ML IVPB 200 ML IV SCH (16:04)
--- NOTE | 2021-11-01 16:29 | NUR ---
Patient is soiled and dirt, but refused change, charge nurse also aware. Addendum: 11/01/21 at 1631 by Tita Christie RN soiled and dirty
--- NOTE | 2021-11-01 16:48 | NUR ---
I spoke with patient daughter. Patient daughter is upset because nurse wanted patient to get changed and had a bowel movement. Daughter said she felt like mother is forced to do things and dose not appreciate it because she said "patient is dying going on comfort care at home". Patient daughter threatened a law suit against hospital if primary nurse caring for patient goes back in room. She wants her mom to be comfortable and have her pain medications as needed. I let Dr. Jacinto know this. He said to document what daughter said and patient can refuse to be changed and just to document this.
--- NOTE | 2021-11-01 18:59 | NUR ---
ASSUMING CARE OF PATIENT. IT WAS REPORTED TO ME BY DAY SHIFT THAT THERE WAS A SITUATION ABOUT THE PATIENT NOT WANTING TO TURN TO GET CLEANED OF STOOL/URINE BECAUSE OF PAIN IN HER BACK. SHE STATES "IT CAUSES ME EXCRUCIATING PAIN. I DONT MIND GETTING CLEANED UP BUT TONIGHT I JUST WANT TO REST. IT WONT CAUSE ANY PROBLEMS FOR ME TO NOT GET CLEANED FOR ONE NIGHT". DAUGHTER AT BEDSIDE WHO IS HER POA AND AGREES WITH HER MOTHERS WISHES. SHE EXPRESSED CONCERNS TO ME ABOUT US FORCING THE PATIENT TO BE CLEANED UP AGAINST HER WISHES. REASSURED DAUGHTER THAT THE PATIENT IS ALERT AND ORIENTED AND HAS THE RIGHT TO REFUSE CARE. OFFERED TO CALL THE DOCTOR TO GET A DOSE OF PAIN MEDS TO PREMEDICATE BEFORE SHE ROLLS. I ALSO EDUCATED THEM ON RISK FOR INCREASING THE SEVERITY OF HER WOUNDS AND RISK FOR GREATER INFECTION IF SHE LAYS IN HER URINE AND FECES FOR PROLONGED PERIODS OF TIME. ALSO EXPLAINED I WOULD BE DOING HOURLY ROUNDING ON PATIENT THROUGH THE NIGHT. CONVERSATION WAS PLEASANT UNTIL THIS POINT WHERE IT QUICKLY ESCALATED AND THE DAUGHTER GOT UPSET. PATIENT IN AGREEMENT OF PLAN FOR THE NIGHT AND STATED IF SHE CHANGES HER MIND ABOUT GETTING CLEANED SHE WOULD LET ME KNOW DURING MY ROUNDS. PATIENT LEFT LAYING SUPINE WITH CALL LIGHT IN REACH AND DAUGHTER AT BEDSIDE.
--- NOTE | 2021-11-01 21:00 | NUR ---
NOTED PATIENT WAS INCONTINENT OF BOWELS. DISCUSSED WITH PATIENT AGAIN ABOUT RISKS OF LAYING IN STOOL ALL NIGHT. SHE ALSO HAD JUST GOTTEN MORPHINE AND STATED HER PAIN WAS VERY GOOD AT ABOUT A 3. PT STILL REFUSED TO LET ME CLEAN THE STOOL. OFFERED PATIENT TO TALK TO HER DAUGHTER ABOUT IT ON THE PHONE. RE-ENTERED ROOM ABOUT 20 MINUTES LATER AND THE PATIENT SAID SHE DID TALK ON THE PHONE WITH HER DAUGHTER AND THEY BOTH DONT WANT THE STOOL CLEANED TONIGHT. SHE ALSO STATES SHE DOESNT WANT TO BE WOKEN UP FOR RESPIRATORY TREATMENTS OR ANYTHING ELSE THAT WOULD DISTURB HER TONIGHT SHE WANTS "A NIGHT OFF". Addendum: 11/02/21 at 0445 by Kindra Arrieta RN ALSO REFUSING REPOSITIONING.
[2021-11-02] MEDS: piperacillin/tazo 3.375gm/50ml 50 ML IV SCH ×2 (01:09→08:33)
[2021-11-02 02:00] VITALS: BP 129/58
[2021-11-02] MEDS: albuterol 2.5 MG/3 ML nebule NEB SCH ×2 (02:00→08:00)
[2021-11-02 06:05] LABS: BASOPHILS # (AUTO) 0.1 X10'3 (0-0.2); BASOPHILS % (AUTO) 0.4 % (0-1); EOSINOPHILS # (AUTO) 0.2 X10'3 (0-0.9); HEMATOCRIT 33.3 % (35.0-45.0); HEMOGLOBIN 10.7 g/dl (12.0-16.0); LYMPHOCYTES # (AUTO) 0.9 X10'3 (1.1-4.8); LYMPHOCYTES % (AUTO) 3.9 % (21-51); MEAN CORPUSCULAR HEMOGLOBIN 28.8 PG (27.0-31.0); MEAN CORPUSCULAR HGB CONC 32.1 g/dL (33.0-36.5); MEAN CORPUSCULAR VOLUME 89.6 FL (78-98); MEAN PLATELET VOLUME 7.7 FL (7.4-10.4); MONOCYTES # (AUTO) 1.9 X10'3 (0-0.9); MONOCYTES % (AUTO) 7.9 % (2-12); NEUTROPHILS # (AUTO) 20.9 X10'3 (1.8-7.7); NEUTROPHILS % (AUTO) 86.8 % (42-75); PLATELET COUNT 262 X10'3 (140-440); RED BLOOD COUNT 3.71 X10'6 (4.20-5.60); RED CELL DISTRIBUTION WIDTH 17.3 % (11.5-14.5); WHITE BLOOD COUNT 24.1 X10'3 (4.5-11.0)
[2021-11-02 06:36] LABS: ALANINE AMINOTRANSFERASE 10 U/L (12-78); ALBUMIN 1.5 G/DL (3.4-5.0); ALBUMIN/GLOBULIN RATIO 0.4 (1.1-1.5); ALKALINE PHOSPHATASE 93 IU/L (46-116); ANION GAP 10 (8-16); ASPARTATE AMINO TRANSFERASE 21 U/L (10-37); BILIRUBIN,TOTAL 0.7 MG/DL (0.1-1.0); BLOOD UREA NITROGEN 19 MG/DL (7-18); BUN/CREATININE RATIO 22.4 (6.6-38.0); CHLORIDE 97 MMOL/L (99-107); CREATININE 0.85 MG/DL (0.40-0.90); GLUCOSE 90 MG/DL (70-104); MAGNESIUM 1.8 MG/DL (1.5-2.4); PHOSPHORUS 2.5 MG/DL (2.3-4.5); POTASSIUM 3.3 MMOL/L (3.5-5.1); SODIUM 135 MMOL/L (135-145); TOTAL CARBON DIOXIDE 27.9 MMOL/L (24-32); TOTAL PROTEIN 5.5 G/DL (6.4-8.2); eGFR 64 ML/MIN
[2021-11-02] MEDS: morphine 2 MG/ML inj. syringe IV PRN ×2 (06:52→11:06)
[2021-11-02] MEDS: budesonide 0.5mg/2ml UD nebule IH SCH (08:00)
[2021-11-02] MEDS: docusate sod 100mg capsule PO SCH (08:00)
[2021-11-02] MEDS: K and/or MAG REPLACEMENT MC SCH (08:00)
[2021-11-02] MEDS: nystatin 15 GM ointment TP SCH (08:00)
[2021-11-02] MEDS: HYDROcodone/acetaminophen 10/325mg tab PO PRN ×2 (08:22→12:40)
[2021-11-02] MEDS: metoprolol tartrate 50mg tablet PO SCH (08:32)
[2021-11-02] MEDS: furosemide 40mg tablet PO SCH (08:32)
[2021-11-02] MEDS: normal saline 1000ml 1,000 ML IV SCH (08:33)
[2021-11-02 12:16] VITALS: BP 118/48
--- NOTE | 2021-11-02 13:38 | NUR ---
Christianne [id number] re: Lucia Romero in [id number]. I just called report to and the nurse is not wanting to accept her without continuing her pain medication.
[2021-11-02] MEDS ORDERED: VANCOMYCIN LEVEL IV ONE (14:30)
== END 2021-11-02 14:45 | DRG 871 ==
LOC: ER 11:22 → ED HOLD 14:32 → MED 3N 22:05
PROVIDERS: ADMIT Family Medicine; ATTEND Family Medicine
PROC: 30233N1 Transfusion of Nonautologous Red Blood Cells into Peripheral Vein, Percutaneous Approach (ICD-10-PCS; principal; 2021-10-30)
DX: A41.9 Sepsis, unspecified organism (principal); L89.153 Pressure ulcer of sacral region, stage 3; N39.0 Urinary tract infection, site not specified; E87.1 Hypo-osmolality and hyponatremia; L97.909 Non-pressure chronic ulcer of unspecified part of unspecified lower leg with unspecified severity; K92.1 Melena; Z66 Do not resuscitate; D64.9 Anemia, unspecified; G89.4 Chronic pain syndrome; I11.0 Hypertensive heart disease with heart failure; I35.0 Nonrheumatic aortic (valve) stenosis; L98.499 Non-pressure chronic ulcer of skin of other sites with unspecified severity; E11.621 Type 2 diabetes mellitus with foot ulcer; L97.509 Non-pressure chronic ulcer of other part of unspecified foot with unspecified severity; I48.91 Unspecified atrial fibrillation; I50.9 Heart failure, unspecified; J44.9 Chronic obstructive pulmonary disease, unspecified; M47.9 Spondylosis, unspecified; M19.90 Unspecified osteoarthritis, unspecified site; M54.9 Dorsalgia, unspecified; Z90.710 Acquired absence of both cervix and uterus; Z90.49 Acquired absence of other specified parts of digestive tract; Z74.01 Bed confinement status
CPT/HCPCS: 36415; 36430; 71045; 80053; 80061; 81001; 83605; 83735; 84100; 84145; 85007; 85025; 85027; 85610; 85730; 86885; 86900; 86901; 86920; 87040; 87081; 87088; 92508; 92616; 93005; 94640; 94760; 96374; 96375; 99285; G0378; J0696; J2270; J2405; J2543; J3010; J3370; J3490; J7030; P9016; Q0163; Q9967